=== PATIENT | male | born 1970 | race Caucasian/White ===

== ENCOUNTER 2018-10-14 08:23 | Observation (INO) | payer SELFPAY ==
[2018-10-14] MEDS ORDERED: METHYLPREDNISOLONE 125 MG INJ ONE (09:02)
[2018-10-14] MEDS ORDERED: LEVALBUTEROL 1.25 MG/3 ML NEB ONE (09:03)
[2018-10-14 09:18] LABS: Absolute Lymphocytes (CBC) 1.3 K/uL (0.7-4.9); Absolute Monocytes 0.8 K/uL (0.1-1.3); Absolute Neutrophil 2.9 K/uL (1.8-8.0); Eosinophils % 1.6 % (0-4.4); Hematocrit 47.7 % (39.6-49.0); Lymphocytes % 25.8 % (15.3-44.8); MPV 9.2 fL (7.6-11.3); Monocytes % 15.9 % (3.3-12.3); RBC Red Blood Cell Count 4.72 M/uL (4.33-5.43)
[2018-10-14 09:44] LABS: BUN Blood Urea Nitrogen 7 mg/dL (7-18); Bicarbonate 25 mmol/L (21-32); Glucose Level 123 mg/dL (74-106); NT PRO-BNP 31 pg/mL (<125); Potassium 4.1 mmol/L (3.5-5.1); Sodium Level 140 mmol/L (136-145); Troponin (Emerg Dept Use Only) < 0.02 ng/mL (0.0-0.045)
[2018-10-14 10:21] LABS: Blood Morphology Comment NOT SEEN (NOT SEEN); Platelet Estimate ADEQ
--- NOTE | 2018-10-14 10:21 | RAD REPORT ---
EXAM DESCRIPTION: RAD - Chest Single View - 10/14/2018 9:54 am CLINICAL HISTORY: Cough;Dyspnea;Chest pain Chest pain. COMPARISON: No comparisons FINDINGS: Portable technique limits examination quality. The lungs are grossly clear. The heart is normal in size. No displaced fractures. IMPRESSION: No acute intrathoracic process suspected.
--- NOTE | 2018-10-14 10:23 | EDPHYS ---
Physician Documentation [facility] Name: Faustino Reddy Jr Age: 48 yrs Sex: Male : 1970 Arrival Date: 10/14/2018 Time: 08:25 Bed 6 Private MD: ED Physician Harjeet Dyer HPI: 10/14 08:43 This 48 yrs old Male presents to ER via Ambulatory with complaints of Chest rn Tightness, Breathing Difficulty. 08:44 The patient has shortness of breath at rest, with light activity. Onset: The rn symptoms/episode began/occurred yesterday. Duration: The symptoms are intermittent. The patient's shortness of breath is aggravated by exertion, light activity. Associated signs and symptoms: Pertinent positives: chest pain, non-productive cough, Pertinent negatives: fever, hemoptysis, loss of consciousness, vomiting. Severity of symptoms: At their worst the symptoms were moderate in the emergency department the symptoms are unchanged. The patient has experienced similar episodes in the past. The patient has not recently seen a physician. Reports since yesterday difficult catching his breath, assoc with mild left sided chest pain that is also intermittent, smokes 2 packs a day for 30 years, doesn't see a doctor. No hemoptysis. Able to sleep flat. + dyspnea with exertion. Family memberinformed me outside of room that patient also having a lot of anxiety lately. . Historical: - Allergies: 08:32 No Known Allergies; aa5 - PMHx: 08:32 None; aa5 - PSHx: 08:32 None; aa5 - Immunization history:: Flu vaccine is not up to date. Adult Immunizations. - Social history:: Smoking status: Patient uses tobacco products, smokes two packs cigarettes per day. Smoking status: . - Ebola Screening: : No symptoms or risks identified at this time Patient denies travel to an Ebola-affected area in the 21 days before illness onset. - Family history:: not pertinent. - Hospitalizations: : No recent hospitalization is reported. ROS: 08:46 Constitutional: Negative for fever, chills, and weight loss, Eyes: Negative for injury, rn pain, redness, and discharge, Cardiovascular: Negative for palpitations, and edema, Respiratory: + for sob and cough Abdomen/GI: Negative for abdominal pain, nausea, vomiting, diarrhea, and constipation, MS/Extremity: Negative for injury and deformity, Skin: Negative for injury, rash, and discoloration, Neuro: Negative for headache, weakness, numbness, tingling, and seizure. Exam: 08:46 Constitutional: This is a well developed, well nourished patient who is awake, alert, rn mild tachypnea and appears anxious Head/Face: Normocephalic, atraumatic. Eyes: Pupils equal round and reactive to light, extra-ocular motions intact. Lids and lashes normal. Conjunctiva and sclera are non-icteric and not injected. Cornea within normal limits. Periorbital areas with no swelling, redness, or edema. ENT: MMM Cardiovascular: Regular rate and rhythm. No pulse deficits. Respiratory: + mild tachypnea with diminished breath sounds at bases. No retractions. Abdomen/GI: soft, non-tender MS/ Extremity: Pulses equal, no cyanosis. Neurovascular intact. Full, normal range of motion. Equal circumference. Neuro: Awake and alert, GCS 15, oriented to person, place, time, and situation. Cranial nerves II-XII grossly intact. Motor strength 5/5 in all extremities. Sensory grossly intact. 08:59 ECG was reviewed by the Attending Physician. rn Vital Signs: 08:33 BP 154 / 102; Pulse 80; Resp 20 S; Temp 98.0(O); Pulse Ox 100% on R/A; Weight 81.65 kg aa5 (R); Height 5 ft. 9 in. (175.26 cm) (R); Pain 0/10; 09:34 BP 158 / 93; Pulse 96; Resp 17; Pulse Ox 95% on R/A; tw2 10:30 BP 151 / 81; Pulse 90; Resp 17; Pulse Ox 96% on R/A; tw2 11:21 BP 150 / 85; Pulse 89; Resp 15; Pulse Ox 97% on R/A; tw2 08:33 Body Mass Index 26.58 (81.65 kg, 175.26 cm) aa5 MDM: 08:32 Patient medically screened. rn 10:20 Differential diagnosis: Anxiety Reaction Bronchitis Chronic Obstructive Pulmonary rn Disease Myocardial Infarction Pneumothorax pulmonary edema, Pulmonary Embolism reactive airway disease. Data reviewed: vital signs, nurses notes, lab test result(s), EKG, radiologic studies, plain films, and as a result, I will admit patient. Counseling: I had a detailed discussion with the patient and/or guardian regarding: the historical points, exam findings, and any diagnostic results supporting the discharge/admit diagnosis, lab results, radiology results, the need for further work-up and treatment in the hospital. Response to treatment: There is no appreciated change of the patient's symptoms at this time, and as a result, I will admit patient. Admission orders: after a detailed discussion of the patient's condition and case, the admit orders are written by me. ED course: Pt still tachypneic, no clear etiology for symptoms, has never had cardiac w/u and will admit for chest pain and pulmonary w/u. Risk factors with smoking hx. . 12:09 Test interpretation: by ED physician or midlevel provider: plain radiologic studies, rn CXR negative for acute infiltrate. 10/14 08:43 Order name: Blood Culture Adult (2) rn 10/14 08:43 Order name: BMP; Complete Time: 09:46 rn 10/14 08:43 Order name: CBC with Diff; Complete Time: 10:23 rn 10/14 08:43 Order name: D-Dimer; Complete Time: 09:46 rn 10/14 08:43 Order name: NT PRO-BNP; Complete Time: 09:46 rn 10/14 08:43 Order name: Troponin (emerg Dept Use Only); Complete Time: 09:46 rn 10/14 08:43 Order name: XRAY CXR (1 view); Complete Time: 10:23 rn 10/14 08:43 Order name: EKG; Complete Time: 08:44 rn 10/14 08:43 Order name: Cardiac monitoring; Complete Time: 08:45 rn 10/14 08:43 Order name: EKG - Nurse/Tech; Complete Time: 08:46 rn 10/14 08:43 Order name: Flu; Complete Time: 09:46 rn 10/14 09:21 Order name: Manual Differential; Complete Time: 10:23 EDMS 10/14 08:43 Order name: IV Saline Lock; Complete Time: 09: rn 10/14 08:43 Order name: Labs collected and sent; Complete Time: 09: rn 10/14 08:43 Order name: O2 Per Protocol; Complete Time: 08:45 rn 10/14 08:43 Order name: O2 Sat Monitoring; Complete Time: 08:45 rn EC:59 Rate is 80 beats/min. Rhythm is regular. QRS [place] is Normal. [place] interval is normal. QRS rn interval is normal. QT interval is normal. No Q waves. T waves are Normal. No ST changes noted. Clinical impression: Normal ECG. Interpreted by me. Reviewed by me. Administered Medications: 08:50 Drug: SOLU-Medrol 125 mg Route: IVP; Site: right antecubital; tw2 10:14 Follow up: Response: No adverse reaction tw2 08:50 Drug: Xopenex (3) 1.25 mg Route: Inhalation; tw2 10:11 Follow up: Response: No adverse reaction tw2 Disposition: 10/14/18 10:23 Hospitalization ordered by Roseann Zayas for Observation. Preliminary diagnosis are Chest pain, unspecified, Dyspnea, unspecified. - Bed requested for Telemetry/MedSurg (observation). - Status is Observation. tw2 - Condition is Stable. - Problem is new. - Symptoms are unchanged. UTI on Admission? No Signatures: Dispatcher [employer] EDMS Mikayla Nix Roman, MD MD rn Calderon, Audri, RN RN aa5 Renetta Burroughs, RN RN tw2 Corrections: (The following items were deleted from the chart) 08:48 08:46 Constitutional: This is a well developed, well nourished patient who is awake, rn alert, and in no acute distress. rn 12:14 10:23 Hospitalization Ordered by Roseann Zayas MD for Observation. Preliminary diagnosis bd is Chest pain, unspecified; Dyspnea, unspecified. Bed requested for Telemetry/MedSurg (observation). Status is Observation. Condition is Stable. Problem is new. Symptoms are unchanged. UTI on Admission? No. rn 13:30 12:14 10/14/2018 10:23 Hospitalization Ordered by Roseann Zayas MD for Observation. tw2 Preliminary diagnosis is Chest pain, unspecified; Dyspnea, unspecified. Bed requested for Telemetry/MedSurg (observation). Status is Observation. Condition is Stable. Problem is new. Symptoms are unchanged. UTI on Admission? No. bd
--- NOTE | 2018-10-14 10:23 | ER ---
Nurse's Notes [facility] Name: Faustino Reddy Jr Age: 48 yrs Sex: Male : 1970 Arrival Date: 10/14/2018 Time: 08:25 Bed 6 Private MD: Diagnosis: Chest pain, unspecified;Dyspnea, unspecified Presentation: 10/14 08:32 Presenting complaint: Patient states: intermittent dull chest pain and SOB that began aa5 yesterday. 08:32 Acuity: DIOR 3 aa5 08:32 Method Of Arrival: Ambulatory aa5 08:36 Transition of care: patient was not received from another setting of care. Onset of aa5 symptoms was September 2018. Risk Assessment: Do you want to hurt yourself or someone else? Patient reports no desire to harm self or others. Initial Sepsis Screen: Does the patient meet any 2 criteria? No. Patient's initial sepsis screen is negative. Does the patient have a suspected source of infection? No. Patient's initial sepsis screen is negative. Care prior to arrival: None. Historical: - Allergies: 08:32 No Known Allergies; aa5 - PMHx: 08:32 None; aa5 - PSHx: 08:32 None; aa5 - Immunization history:: Flu vaccine is not up to date. Adult Immunizations. - Social history:: Smoking status: Patient uses tobacco products, smokes two packs cigarettes per day. Smoking status: . - Ebola Screening: : No symptoms or risks identified at this time Patient denies travel to an Ebola-affected area in the 21 days before illness onset. - Family history:: not pertinent. - Hospitalizations: : No recent hospitalization is reported. Screenin:43 Abuse screen: Denies threats or abuse. Nutritional screening: No deficits noted. tw2 Tuberculosis screening: No symptoms or risk factors identified. Fall Risk None identified. Assessment: 08:50 General: Appears in no apparent distress. Behavior is calm, cooperative, appropriate tw2 for age. Pain: Complains of pain in chest Pain does not radiate. Pain began 2-3 days ago. Neuro: Level of Consciousness is awake, alert, obeys commands, Oriented to person, place, time, situation. Cardiovascular: Heart tones S1 S2 Patient's skin is warm and dry. Respiratory: Airway is patent Respiratory effort is even, unlabored, Respiratory pattern is regular, symmetrical, Breath sounds are clear bilaterally. GI: No signs and/or symptoms were reported involving the gastrointestinal system. Abdomen is flat, Bowel sounds present X 4 quads. : No signs and/or symptoms were reported regarding the genitourinary system. EENT: No signs and/or symptoms were reported regarding the EENT system. Derm: No signs and/or symptoms reported regarding the dermatologic system. Musculoskeletal: Range of motion: intact in all extremities. 09:34 Reassessment: Patient appears in no apparent distress at this time. No changes from tw2 previously documented assessment. Patient and/or family updated on plan of care and expected duration. Pain level reassessed. Patient is alert, oriented x 3, equal unlabored respirations, skin warm/dry/pink. 10:30 Reassessment: Patient appears in no apparent distress at this time. No changes from tw2 previously documented assessment. Patient and/or family updated on plan of care and expected duration. Pain level reassessed. Patient is alert, oriented x 3, equal unlabored respirations, skin warm/dry/pink. 11:22 Reassessment: Patient appears in no apparent distress at this time. No changes from tw2 previously documented assessment. Patient and/or family updated on plan of care and expected duration. Pain level reassessed. Patient is alert, oriented x 3, equal unlabored respirations, skin warm/dry/pink. Vital Signs: 08:33 BP 154 / 102; Pulse 80; Resp 20 S; Temp 98.0(O); Pulse Ox 100% on R/A; Weight 81.65 kg aa5 (R); Height 5 ft. 9 in. (175.26 cm) (R); Pain 0/10; 09:34 BP 158 / 93; Pulse 96; Resp 17; Pulse Ox 95% on R/A; tw2 10:30 BP 151 / 81; Pulse 90; Resp 17; Pulse Ox 96% on R/A; tw2 11:21 BP 150 / 85; Pulse 89; Resp 15; Pulse Ox 97% on R/A; tw2 08:33 Body Mass Index 26.58 (81.65 kg, 175.26 cm) aa5 ED Course: 08:25 Patient arrived in ED. rg4 08:32 Harjeet Dyer MD is Attending Physician. rn 08:32 Arm band placed on Patient placed in an exam room, on a stretcher. aa5 08:43 Renetta Burroughs, RN is Primary Nurse. tw2 08:43 Triage completed. aa5 08:44 Bed in low position. Call light in reach. street roller engineer on. Pulse ox on. NIBP on. tw2 08:45 Patient maintains SpO2 saturation greater than 95% on room air. tw2 08:50 Inserted saline lock: 20 gauge in right antecubital area, using aseptic technique. tw2 Blood collected. 09:06 EKG done, by civil cadd technician. reviewed by Harjeet Dyer MD. at1 09:06 Flu Sent. tw2 09:55 XRAY CXR (1 view) In Process Unspecified. EDMS 10:22 Roseann Zayas MD is Hospitalizing Provider. rn 12:41 No provider procedures requiring assistance completed. Patient admitted, IV remains in sg place. intact, No redness/swelling at site. Administered Medications: 08:50 Drug: SOLU-Medrol 125 mg Route: IVP; Site: right antecubital; tw2 10:14 Follow up: Response: No adverse reaction tw2 08:50 Drug: Xopenex (3) 1.25 mg Route: Inhalation; tw2 10:11 Follow up: Response: No adverse reaction tw2 Outcome: 10:23 Decision to Hospitalize by Provider. rn 12:40 Admitted to Tele accompanied by tech, via wheelchair, room 403, with chart, Report sg called to SUKHDEV Miguel 12:40 Condition: good 12:40 Instructed on discharge instructions, follow up and referral plans. safety practices, Demonstrated understanding of instructions, follow-up care. 13:30 Patient left the ED. tw2 Signatures: Dispatcher [employer] EDMS Alberto Yi, RN RN Harjeet Dyer MD MD rn Calderon, Audri RN RN aa5 Valentina Irizarry, evs attendant EKG Tat1 Renetta Burroughs, RN RN tw2 Annette Begum rg4 Corrections: (The following items were deleted from the chart) :43 08:36 Presenting complaint: Patient states: intermittent dull chest pain and SOB that aa5 began yesterday. aa5 08:43 08:36 Acuity: DIOR 3 aa5 aa5 08:43 08:36 Method Of Arrival: Ambulatory aa5 aa5
[2018-10-14] MEDS ORDERED: MORPHINE 2 MG/ML SYR IV PRN (12:48)
[2018-10-14] MEDS ORDERED: NITROGLYCERIN 0.4 MG/TAB SL PRN (12:48)
--- NOTE | 2018-10-14 13:25 | EKG ---
Test Date: 2018-10-14 Test Time: 08:47:13 District Representative: MIGUEL MEASUREMENT RESULTS: Intervals: Rate: 80 MA: 148 QRSD: 84 QT: 384 QTc: 442 [place]: P: 41 MA: 148 QRS: 73 T: 57 INTERPRETIVE STATEMENTS: Normal sinus rhythm Normal ECG No previous ECG available for comparison Electronically Signed On 10-14-18 13:24:51 CDT by Romulo Sewell
[2018-10-14 13:37] VITALS: BMI 26.4
[2018-10-14] MEDS: LEVALBUTEROL 1.25 MG/3 ML NEB NEB SCH ×2 (14:00→20:00)
[2018-10-14 15:25] LABS: Urine Appearance CLEAR; Urine Bilirubin NEGATIVE (NEG); Urine Blood NEGATIVE (NEG); Urine Color DK YELLOW; Urine Glucose NEGATIVE (NEG); Urine Protein NEGATIVE (NEG)
[2018-10-14 15:42] LABS: Urine Bacteria NONE SEEN /HPF (NONE SEEN); Urine RBC NONE SEEN /HPF (NONE SEEN)
[2018-10-14 15:43] LABS: Urine Culture Reflex Order NOT NEEDED
--- NOTE | 2018-10-14 16:20 | P.HP ---
Certification for Inpatient Patient admitted to: Observation With expected LOS: <2 Midnights Practitioner: I am a practitioner with admitting privileges, knowledge of patient current condition, hospital course, and medical plan of care. Services: Services provided to patient in accordance with Admission requirements found in Title 42 Section 412.3 of the Code of Federal Regulations Patient History Date of Service: 10/14/18 Reason for admission: Chest pain History of Present Illness: This is a 48-year-old male who is a current 2 [id number] smoker, daily marijuana usage along with daily alcohol usage admitted for chest pain. Per patient, he started having substernal chest pain for the past 1 day. Rates it at 5-6/10, radiating to the back, sharp type of pain that lasts for a few min then resolved spontaneously. No alleviating or exacerbating factors. Associated with shortness of breath. He denies any dizziness, nausea, vomiting , diaphoresis, headache, lightheadedness, syncopal or presyncopal episode. Patient states that he has had previous episodes like this where he could not catch his breath, mostly related to anxiety and driving down to [place] or other stressful situations. Since this has been progressively worsening, he told his this morning and she brought him to the emergency room. In the ER, his blood pressure was 154/102, heart rate was 80, respirations 20. He is afebrile at 98, 100% on room air. His labs were unremarkable. Troponin was negative x1. Chest x-ray was without any acute abnormalities. In the ER, he was given Xopenex breathing treatments along with Solu-Medrol 125 mg IV. At the time of my exam, he is alert oriented x3, his chest pain had resolved and he was in no acute distress. He was admitted for observation for chest pain rule out due to his risk factors of cigarette smoking and alcohol. Allergies No Known Allergies Allergy (Verified 10/14/18 12:48) Home medications list reviewed: Yes - Past Medical/Surgical History Has patient received pneumonia vaccine in the past: No Diabetic: No Past Medical History: Patient denies medical history -: tooth extraction - Family History Father History Unknown: Yes -: Lung disease, Cancer Notes: lung cancer Mother -: Heart disease, Diabetes - Social History Smoking Status: Heavy Tobacco smoker (>10 cigarettes/day) (2 pack per day x 30+ years) Counseled patient to stop smoking for: more than 10 minutes Smoking therapy provided: Yes Patient receptive to therapy: No Alcohol use: Yes CD- Drugs: Yes Caffeine use: No Place of Residence: Home Review of Systems 10-point ROS is otherwise unremarkable Physical Examination - Vital Signs Temperature: 98.6 F Blood Pressure: 147/83 Pulse: 77 Respirations: 17 Pulse Ox (%): 99 - Physical Exam General: Alert, In no apparent distress, Oriented x3 HEENT: Atraumatic, PERRLA, Mucous membr. moist/pink, EOMI, Sclerae nonicteric Neck: Supple, 2+ carotid pulse no bruit, No LAD, Without JVD or thyroid abnormality Respiratory: Clear to auscultation bilaterally, Normal air movement Cardiovascular: Regular rate/rhythm, Normal S1 S2 Gastrointestinal: Normal bowel sounds, No tenderness Musculoskeletal: No tenderness Integumentary: No rashes Neurological: Normal gait, Normal speech, Normal strength at 5/5 x4 extr, Normal tone, Normal affect Lymphatics: No axilla or inguinal lymphadenopathy - Studies Laboratory Data (last 24 hrs) 10/14/18 08:50: WBC 5.2, Hgb 16.5, Hct 47.7, Plt Count 138 L 10/14/18 08:50: Sodium 140, Potassium 4.1, BUN 7, Creatinine 0.77, Glucose 123 H Microbiology Data (last 24 hrs): 10/14/18 08:48 Nasopharnyx Influenza Type A Antigen Screen - Final 10/14/18 08:48 Nasopharnyx Influenza Type B Antigen Screen - Final Assessment and Plan - Problems (Diagnosis) (1) Chest pain, rule out acute myocardial infarction Current Visit: Yes Status: Acute Plan: Differential diagnoses include: ACS vs anxiety vs musculoskeletal. Chest pain guidelines: Metoprolol, aspirin, Plavix, statin. Morphine and nitro as needed for pain. Echo ordered, pending. Troponin negative x1. Trend troponins (2) Elevated blood-pressure reading without diagnosis of hypertension Current Visit: Yes Status: Acute Plan: Start patient on metoprolol. Patient denies any history of hypertension in the past, on no medications at home. He may need a prescription for blood pressure medication on discharge. (3) Alcohol abuse Current Visit: Yes Status: Chronic Plan: Patient counseled on alcohol cessation. (4) Macrocytosis without anemia Current Visit: Yes Status: Acute Plan: This is likely secondary to alcohol usage. No further intervention at this time. (5) Marijuana abuse Current Visit: Yes Status: Chronic (6) Nicotine abuse Current Visit: Yes Status: Chronic Plan: Counseled on smoking cessation. As patient stated that he has been thinking about it, he will start with cutting back on the amount of cigarettes he smokes. Nicotine patch offered, patient refused. (7) Anxiety Current Visit: Yes Status: Acute Plan: Patient will need outpatient follow up with the primary care physician for further management. He may benefit from SSRI versus CBT - Plan DVT prophylaxis: Aspirin and Plavix GI prophylaxis: None Diet: Heart healthy Disposition: Pending echo and troponins x2. Anticipate discharge in the next 24-48 hr. - Advance Directives Does patient have a Living Will: No Does patient have a Durable POA for Healthcare: No
[2018-10-14] MEDS: METHYLPREDNISOLONE 40 MG INJ IV SCH (16:31)
[2018-10-14] MEDS: METOPROLOL TAR 25 MG TAB PO SCH (16:33)
[2018-10-14 17:19] LABS: HDL Cholesterol 48 mg/dL (40-60); LDL Cholesterol, Calculated 88 (<130); Troponin I < 0.02 ng/mL (0.0-0.045)
[2018-10-14] MEDS ORDERED: ATORVASTATIN 40 MG TAB PO SCH (21:00)
[2018-10-14] MEDS ORDERED: TEMAZEPAM 15 MG CAP PO PRN (22:45)
[2018-10-15] MEDS: METHYLPREDNISOLONE 40 MG INJ IV SCH ×2 (00:01→08:09)
[2018-10-15] MEDS: LEVALBUTEROL 1.25 MG/3 ML NEB NEB SCH ×2 (01:12→09:50)
[2018-10-15 04:45] LABS: Absolute Lymphocytes (CBC) 0.8 K/uL (0.7-4.9); Absolute Monocytes 0.3 K/uL (0.1-1.3); Absolute Neutrophil 7.4 K/uL (1.8-8.0); Basophils % 0.1 % (0-1.3); Hematocrit 45.3 % (39.6-49.0); MPV 9.9 fL (7.6-11.3); Monocytes % 3.2 % (3.3-12.3); RBC Red Blood Cell Count 4.47 M/uL (4.33-5.43)
[2018-10-15 04:55] LABS: ALT/SGPT 88 U/L (12-78); AST/SGOT 83 U/L (15-37); Albumin 3.1 g/dL (3.4-5.0); Alkaline Phosphatase 95 U/L (45-117); BUN Blood Urea Nitrogen 12 mg/dL (7-18); Bicarbonate 24 mmol/L (21-32); Bilirubin Total 1.7 mg/dL (0.2-1.0); Glucose Level 133 mg/dL (74-106); Magnesium 2.1 mg/dL (1.8-2.4); Phosphorus 3.4 mg/dL (2.5-4.9); Potassium 3.7 mmol/L (3.5-5.1); Protein, Total 7.7 g/dL (6.4-8.2); Sodium Level 138 mmol/L (136-145)
[2018-10-15] MEDS ORDERED: POTASSIUM CL SA 10 MEQ TAB PO ONE (05:35)
[2018-10-15] MEDS: METOPROLOL TAR 25 MG TAB PO SCH (05:55)
[2018-10-15] MEDS ORDERED: CLOPIDOGREL 75 MG TABLET PO SCH (09:00)
[2018-10-15] MEDS ORDERED: ASPIRIN EC 81 MG TAB PO SCH (09:00)
[2018-10-15 09:24] VITALS: O2SAT 98
--- NOTE | 2018-10-15 11:25 | P.SSS ---
Patient History Date of Service: 10/15/18 Reason for admission: Chest pain History of Present Illness: This is a 48-year-old male who is a current 2 [id number] smoker, daily marijuana usage along with daily alcohol usage admitted for chest pain. Per patient, he started having substernal chest pain for the past 1 day. Rates it at 5-6/10, radiating to the back, sharp type of pain that lasts for a few min then resolved spontaneously. No alleviating or exacerbating factors. Associated with shortness of breath. He denies any dizziness, nausea, vomiting , diaphoresis, headache, lightheadedness, syncopal or presyncopal episode. Patient states that he has had previous episodes like this where he could not catch his breath, mostly related to anxiety and driving down to [place] or other stressful situations. Since this has been progressively worsening, he told his this morning and she brought him to the emergency room. In the ER, his blood pressure was 154/102, heart rate was 80, respirations 20. He is afebrile at 98, 100% on room air. His labs were unremarkable. Troponin was negative x1. Chest x-ray was without any acute abnormalities. In the ER, he was given Xopenex breathing treatments along with Solu-Medrol 125 mg IV. At the time of my exam, he is alert oriented x3, his chest pain had resolved and he was in no acute distress. He was admitted for observation for chest pain rule out due to his risk factors of cigarette smoking and alcohol. Allergies No Known Allergies Allergy (Verified 10/14/18 12:48) Home medications list reviewed: Yes Home Medications: Penicillin Vk [Veetids (Pen-Vee K)*] 500 mg PO Q8HR 10/14/18 Metoprolol Tartrate [Lopressor*] 12.5 mg PO BID 6AM 6PM #60 tab 10/15/18 - Past Medical/Surgical History Has patient received pneumonia vaccine in the past: No Diabetic: No -: tooth extraction - Family History Father History Unknown: Yes -: Lung disease, Cancer Notes: lung cancer Mother -: Heart disease, Diabetes - Social History Smoking Status: Heavy Tobacco smoker (>10 cigarettes/day) (2 pack per day x 30+ years) Alcohol use: Yes CD- Drugs: Yes Caffeine use: No Place of Residence: Home Review of Systems 10-point ROS is otherwise unremarkable Physical Examination - Vital Signs Temperature: 98.1 F Blood Pressure: 141/77 Pulse: 72 Respirations: 18 Pulse Ox (%): 98 - Physical Exam General: Alert, In no apparent distress, Oriented x3 HEENT: Atraumatic, PERRLA, Mucous membr. moist/pink, EOMI, Sclerae nonicteric Neck: Supple, 2+ carotid pulse no bruit, No LAD, Without JVD or thyroid abnormality Respiratory: Clear to auscultation bilaterally, Normal air movement Cardiovascular: Regular rate/rhythm, Normal S1 S2 Gastrointestinal: Normal bowel sounds, No tenderness Musculoskeletal: No tenderness Integumentary: No rashes Neurological: Normal gait, Normal speech, Normal strength at 5/5 x4 extr, Normal tone, Normal affect Lymphatics: No axilla or inguinal lymphadenopathy - Studies Microbiology Data (last 24 hrs): 10/14/18 08:48 Nasopharnyx Influenza Type A Antigen Screen - Final 10/14/18 08:48 Nasopharnyx Influenza Type B Antigen Screen - Final - Diagnosis (Problem(s)) (1) Chest pain, rule out acute myocardial infarction Status: Acute (2) Elevated blood-pressure reading without diagnosis of hypertension Status: Acute (3) Alcohol abuse Status: Chronic (4) Macrocytosis without anemia Status: Acute (5) Marijuana abuse Status: Chronic (6) Nicotine abuse Status: Chronic (7) Anxiety Status: Acute Treatment Summary: Patient was admitted for chest pain rule out. His symptoms resolved right after admission, in the ER. He remained hemodynamically stable throughout the stay. Troponins were negative x3. EKG without any abnormal changes. An echocardiogram was done, which was with EF of 84% and normal. Possibility of anxiety was discussed with patient. There is recommended that he follow up with his primary care physician for further evaluation and management. He may benefit from CBT prior to starting medications. If CBT is not adequate, he may benefit from addition of an SSRI. But he will need follow up with the primary care physician in order to manage this further. He was started on metoprolol, which helped his blood pressure. He will be discharged on metoprolol to help his blood pressure. He was recommended to follow up with his primary care physician for further management of elevated blood pressure. Prior to discharge, patient was alert oriented x3, in no acute distress and hemodynamically stable. His symptoms are completely resolved. He was extensively counseled on alcohol, smoking and marijuana usage cessation. His diagnoses and treatment plan was discussed with him. All questions were answered and patient verbalized understanding. He was discharged home a safe and stable manner. - Disposition Discharge Date: 10/15/18 Disposition: ROUTINE DISCHARGE Condition: GOOD Patient Discharge Instructions: Please follow up with your primary care physician in 2-3 days. Please discuss with your primary care physician regarding your blood pressure along with anxiety. Please return to the emergency room for worsening symptoms Diet: AHA Activity: Ad ariel Time Spent Managing Pts Care (In Minutes): 45
--- NOTE | 2018-10-15 13:38 | ECHO ---
HEIGHT: 5 ft 9 in WEIGHT: 179 lb 0 oz DATE OF STUDY: 10/15/[address]: Roseann Zayas MD 2-DIMENSIONAL: YES M.MODE: YES DOPPLER: YES COLOR FLOW: YES TDS: NO PORTABLE: NO DEFINITY: NO BUBBLE STUDY: NO DIAGNOSIS: CHEST PAIN CARDIAC HISTORY: CATHERIZATION: NO SURGERY: NO PROSTHETIC VALVE: NO PACEMAKER: NO MEASUREMENTS (cm) DIASTOLIC (NORMALS) SYSTOLIC (NORMALS) IVSd 0.8 (0.6-1.2) LA Diam 3.8 (1.9-4.0) LVEF 84% LVIDd 5.3 (3.5-5.7) LVIDs 2.5 (2.0-3.5) %FS 53% LVPWd 0.9 (0.6-1.2) Ao Diam 3.2 (2.0-3.7) 2 DIMENSIONAL ASSESSMENT: RIGHT ATRIUM: NORMAL LEFT ATRIUM: NORMAL RIGHT VENTRICLE: NORMAL LEFT VENTRICLE: NORMAL TRICUSPID VALVE: NORMAL MITRAL VALVE: NORMAL PULMONIC VALVE: NORMAL AORTIC VALVE: NORMAL PERICARDIAL EFFUSION: NONE AORTIC ROOT: NORMAL LEFT VENTRICULAR WALL MOTION: NORMAL DOPPLER/COLOR FLOW: NORMAL COMMENTS: NORMAL 2D ECHOCARDIOGRAM WITH DOPPLER. TECHNOLOGIST: Noel GOMEZ
[2018-10-15 14:19] VITALS: BP 141/77; TEMP 98.1
== END 2018-10-15 13:33 | disposition home or self-care (01) ==
LOC: ER 08:23 → ERHOLD 11:06 → 4TH 12:40
PROVIDERS: ADMIT Family Medicine; ATTEND Family Medicine
DX: R07.9 Chest pain, unspecified (principal); R03.0 Elevated blood-pressure reading, without diagnosis of hypertension; R06.00 Dyspnea, unspecified; D75.89 Other specified diseases of blood and blood-forming organs; F10.10 Alcohol abuse, uncomplicated; F12.10 Cannabis abuse, uncomplicated; F17.210 Nicotine dependence, cigarettes, uncomplicated; F41.9 Anxiety disorder, unspecified
CPT/HCPCS: 36415; 71045; 80048; 80053; 80061; 81001; 83735; 83880; 84100; 84484; 85025; 85379; 87040; 87086; 87088; 87804; 93005; 93306; 94640; 94760; 96374; 99285; G0378; J2920; J2930

== ENCOUNTER 2021-10-28 21:17 | Emergency (ER) | payer SELFPAY ==
--- OUTSIDE RECORDS SUMMARY | 2021-10-28 21:20 | XMS REPORT | Continuity of Care Document ---
:1970 Author Organization [facility] t Address [address] [place] [address] Care Team Providers Name Role Phone Rigo Dyer Attending Clinician Unavailable UNDEFINED Admitting Clinician Unavailable Payers Payer Name Policy Type Policy Number Effective Date Expiration Date S ource Problems This patient has no known problems. Allergies, Adverse Reactions, Alerts Allergy Allergy Status Severity Reaction(s) Onset Inactive Treating Comm ents Source Name Type Date Date Clinician No Known DA Active U [facility] Allergie 02-15 [facility] 00:00: d 00 [facility] No Known DA Active U [facility] Allergie 02-15 [facility] s 00:00: d 00 [facility] Medications This patient has no known medications. Procedures This patient has no known procedures. Encounters Start End Encounter Admission Attending Care Care Encounter Source Date/Time Date/Time Type Type Clinicians Facility Department ID 2021-02-15 Inpatient [facility] [id number] [facility] 14:23:00 [id number] [facility] 2021-02-15 2021-02-16 Emergency EM Dyer, [facility] [id number] [facility] 14:23:00 16:47:00 [facility] Results Test Description Test Time Test Comments Results Result Comments Source ALCOHOL 2021-02-16 10:46:00 Test Item Value Reference Range Interpretation Comme nts ALCOHOL (test code = ALC) 72 MG/DL 0-10 H [id number] 05:54:00 Test Item Value Reference Range Interpretation Comments ALCOHOL (test code = ALC) 140 MG/DL 0-10 HH [id number] 00:24:00 Test Item Value Reference Range Interpretation Comments ALCOHOL (test code = ALC) 229 MG/DL 0-10 HH COVID Asymptomatic IH [id number] 17:05:00 Test Item Value Reference Range Interpretation Comments COVID Asymptomatic IH NTX (test code = Negative COVNONPUINTX) COVID 19 Asymptomatic IH [id number] 17:05:00 Test Item Value Reference Range Interpretation Comments COVID 19 Asymptomatic NEGATIVE Negative Per ma nufacturer, IH AG (test code = negative results should COVNONPUIAG) be treated aspresumptive a nd, if inconsistent wi th clinical signs andsymptoms or necessary for p atient management, rashawn uld betested with a n alternative mol ecular assay. Negative resultsdo not p reclude SARS-CoV-2 infe ction and should not be usedas the sole basis for patient man agement decisions. Neg ative results should be considered in t he context of apat ient's recent exposure s, history, prese nce of clinicalsigns a nd symptoms consis tent with COVID-19. RBC [id number] 16:47:00 Test Item Value Reference Range Interpretation Comments PLATELET ESTIMATE (test MARKEDLY DECREASED ADEQUATE 72-90,000 code = PLTEST) THOUSAND PLATELET MORPHOLOGY NORMAL (test code = PLTMORPH) CBC W/AUTO [id number] 16:47:00 Test Item Value Reference Range Interpretation Comments WHITE BLOOD CELL (test code = 7.0 K/mm3 3.5-11.0 N WBC) RED BLOOD CELL (test code = 4.11 M/mm3 4.70-6.10 L RBC) HEMOGLOBIN (test code = HGB) 14.9 G/DL 12.3-15.9 N HEMATOCRIT (test code = HCT) 42.9 % 35.8-46.7 N MEAN CELL VOLUME (test code = 104.4 Fl 86.3-98.9 H MCV) MEAN CELL HGB (test code = MCH) 36.3 pg 28.9-34.4 H MEAN CELL HGB CONCETRATION 34.7 G/DL 32.1-34.5 H (test code = MCHC) RED CELL DISTRIBUTION WIDTH 13.6 SD 11.5-14.5 N (test code = RDW) PLATELET COUNT (test code = 80 K/mm3 150-450 L PLT) MEAN PLATELET VOLUME (test code 11.00 fL 7.0-9.6 H = MPV) NEUTROPHIL % (test code = NT%) 41.0 % 40-76 N IMMATURE GRANULOCYTE % (test 0.3 % 0.0-5.0 N code = IG%) LYMPHOCYTE % (test code = LY%) 34.7 % 20.5-51.1 N MONOCYTE % (test code = MO%) 18.8 % 1.7-9.3 H EOSINOPHIL % (test code = EO%) 3.8 % 0.0-6.0 N BASOPHIL % (test code = BA%) 1.4 % 0.0-2.0 N NUCLEATED RBC % (test code = 0.0 /100WBC% 0.0-1.0 N NRBC%) NEUTROPHIL # (test code = NT#) 2.9 K/mm3 1.8-7.6 N IMMATURE GRANULOCYTE # (test 0.02 x10 3/uL 0.00-0.03 N code = IG#) LYMPHOCYTE # (test code = LY#) 2.4 K/mm3 0.6-3.0 N MONOCYTE # (test code = MO#) 1.3 K/mm3 0.2-1.5 N EOSINOPHIL # (test code = EO#) 0.3 K/mm3 0.0-0.4 N BASOPHIL # (test code = BA#) 0.1 K/mm3 0.0-0.2 N NUCLEATED RBC # (test code = 0.0 K/mm3 0.00-0.01 N NRBC#) MANUAL DIFF REQUIRED (test code NO DIFF/SCN CRITERIA = MDIFF) [id number] 16:45:00 Test Item Value Reference Range Interpretation Comments ACETAMINOPHEN (test code = ACET) <2.0 mcG/ML 10.0-30.0 L Last Dose Date: 02/15/21Last Dose Time: [id number] 16:45:00 Test Item Value Reference Range Interpretation Comments ALCOHOL (test code = ALC) 343 MG/DL 0-10 HH Last Dose Date: 02/15/21Last Dose Time: 1434BASIC METABOLIC [id number] 16:45:00 Test Item Value Reference Range Interpretation Comments SODIUM (test code = NA) 141 mmol/L 134-147 N POTASSIUM (test code = 3.6 mmol/L 3.4-5.0 N K) CHLORIDE (test code = 107 mmol/L 100-108 N CL) CARBON DIOXIDE (test 27 mmol/L 21-32 N code = CO2) ANION GAP (test code = 7.0 GAP calc 4.0-15.0 N GAP) GLUCOSE (test code = 111 MG/DL 70-110 H GLU) BLOOD UREA NITROGEN 6 MG/DL 7-18 L (test code = BUN) GLOMERULAR FILTRATION >=60 max estimate >60 RATE (test code = GFR) estGFR CREATININE (test code = 0.5 MG/DL 0.8-1.3 L CREAT) CALCIUM (test code = CA) 8.8 MG/DL 8.5-10.1 N Last Dose Date: 02/15/21 Dose Time: 1433HEPATIC FUNCTION [id number] 16:45:00 Test Item Value Reference Range Interpretation Comments TOTAL PROTEIN (test code = PROT) 8.3 G/DL 6.4-8.2 H ALBUMIN (test code = ALB) 3.6 G/DL 3.4-5.0 N BILIRUBIN TOTAL (test code = BILT) 1.50 MG/DL 0.2-1.2 H BILIRUBIN DIRECT (test code = 1.10 MG/DL 0.00-0.30 H BILD) BILIRUBIN INDIRECT (test code = 0.40 MG/DL 0.2-1.2 N BILIND) SGOT/AST (test code = AST) 115 Unit/L 15-37 H SGPT/ALT (test code = ALT) 65 Unit/L 12-78 N ALKALINE PHOSPHATASE TOTAL (test 220 Unit/L 50-136 H code = ALKP) Last Dose Date: 02/15/21 Dose Time: [id number] 16:27:00 Test Item Value Reference Range Interpretation Comments SALICYLATE (test code < 1.7 MG/DL See_Comment L [Auto mated message] = DEANNA) The system Generate generated this result transmitted ref erence range: 2.8-20.0 THER. The reference r alexa was not used to interpret this result as normal/abnor mal. UA RFLX MICR CULT IF [id number] 16:10:00 Test Item Value Reference Range Interpretation Comments UA COLOR (test code = YELLOW discript YEL/STRAW COLU) UA APPEARANCE (test code CLEAR discript CLEAR = APPU) UA GLUCOSE DIPSTICK (test NEGATIVE mg/dL NEG code = DGLUU) UA BILIRUBIN DIPSTICK NEGATIVE mg/dL NEG (test code = BILU) UA KETONE DIPSTICK (test NEGATIVE mg/dL NEG code = KETU) UA SPECIFIC GRAVITY (test <=1.005 SG 1.005-1.030 code = SGU) UA BLOOD DIPSTICK (test TRACE mg/DL NEG code = MING) UA PH DIPSTICK (test code 6.0 pH UNITS 5.0-7.0 = JIGAR) UA PROTEIN DIPSTICK (test NEGATIVE mg/dL NEG code = PROU) UA UROBILINIOGEN DIPSTICK 0.2 mg/dL <2.0 (test code = URO) UA NITRITE DIPSTICK (test NEGATIVE SCREEN NEG code = KAROLINE) UA LEUKOCYTE ESTERASE NEGATIVE Leuk/mcL NEGATIVE DIPSTICK (test code = LEUU) UA CULTURE NEEDED? (test NO, WBC<10 Criteria Culture CHK code = UACULT) Indication for culture: RiskForSepsis-no oth srcDRUGS OF ABUSE SCREEN UR 2021-02-15 16:10:00 Test Item Value Reference Range Interpretation Comments URN COCAINE (test NEGATIVE See_Comment UNCONFIRME D code = COCAURN) SCcutoff SCREENING RE SULTS SHOULD NOT BE U SED FORNON-MEDICAL PURPOSES. [Automated message] The system which generated this result transmit gilberto reference range : <300 NG/ML. The reference range was not used to interpret this result as normal/abnormal . URN CANNABINOIDS POSITIVE See_Comment A UNCONFIRMED (test code = SCcutoff SCREENING RESUL TS CANNABURN) SHOULD NOT BE U SED FORNON-MEDICAL PURPOSES. [Automated message] The system which generated this result transmit gilberto reference range : <50 NG/ML. The reference range was not used to interpret this result as normal/abnormal . URN AMPHETAMINE (test NEGATIVE See_Comment UNCONF IRMED code = AMPHETURN) SCcutoff SCREENING RESULTS SHOULD NOT BE U SED FORNON-MEDICAL PURPOSES. [Automated message] The system which generated this result transmit gilberto reference range : <1000 NG/ML. Th e reference range was not used to interpret this result as normal/abnormal . URN BARBITURATE (test NEGATIVE See_Comment UNCONF IRMED code = BARBITURN) SCcutoff SCREENING RESULTS SHOULD NOT BE U SED FORNON-MEDICAL PURPOSES. [Automated message] The system which generated this result transmit gilberto reference range : <200 NG/ML. The reference range was not used to interpret this result as normal/abnormal . URN BENZODIAZEPINE NEGATIVE See_Comment UNCONFIRM ED (test code = SCcutoff SCREENING RESUL TS BENZOURN) SHOULD NOT BE U SED FORNON-MEDICAL PURPOSES. [Automated message] The system which generated this result transmit gilberto reference range : <200 NG/ML. The reference range was not used to interpret this result as normal/abnormal . URN OPIATES (test NEGATIVE See_Comment UNCONFIRME D code = OPIATURN) SCcutoff SCREENING R ESULTS SHOULD NOT BE U SED FORNON-MEDICAL PURPOSES. [Automated message] The system which generated this result transmit gilberto reference range : <2000 NG/ML. Th e reference range was not used to interpret this result as normal/abnormal . URN PHENCYCLIDINE NEGATIVE See_Comment UNCONFIRME D (PCP) (test code = SCcutoff SCREENING RESULTS PHENCURN) SHOULD NOT BE U SED FORNON-MEDICAL PURPOSES. [Automated message] The system which generated this result transmit gilberto reference range : <25 NG/ML. The reference range was not used to interpret this result as normal/abnormal . URN METHADONE (test NEGATIVE See_Comment UNCONFIR MED code = METHAURN) SCcutoff SCREENING R ESULTS SHOULD NOT BE U SED FORNON-MEDICAL PURPOSES. [Automated message] The system which generated this result transmit gilberto reference range : <300 NG/ML. The reference range was not used to interpret this result as normal/abnormal . Indication for culture: RiskForSepsis-no oth src
[2021-10-28] MEDS ORDERED: AMOX/K CLAV 875 MG TAB ONE (22:09)
[2021-10-28] MEDS ORDERED: TETANUS & DIPHTHERIA TOX,ADULT 0.5 ML VIAL ONE (22:13)
--- NOTE | 2021-10-28 22:20 | RAD REPORT ---
EXAM DESCRIPTION: RAD - Forearm Right - 10/28/2021 10:12 pm CLINICAL HISTORY: Right arm pain FINDINGS: No fracture is seen. A radiopaque foreign body not visualized
--- NOTE | 2021-10-28 22:25 | EDPHYS ---
Physician Documentation [facility] Name: Faustino Reddy Jr Age: 51 yrs Sex: Male : 1970 Arrival Date: 10/28/2021 Time: 21:22 Bed 13 Private MD: ED Physician Wil Hinds HPI: 10/28 21:52 This 51 yrs old Male presents to ER via Ambulatory with complaints of Dog Bite. ms3 21:52 The patient was bitten on the right arm, by a dog, Dog was eating. Onset: The ms3 symptoms/episode began/occurred acutely, 2 hour(s) ago. Animal information: The animal was reported to appear healthy. Animal's vaccinations are up to date. The animal is known and can be quarantined. Secondary to the bite the patient reports an abrasion, Associated signs and symptoms: The patient has no apparent associated signs or symptoms. Severity of symptoms: At their worst the symptoms were moderate, in the emergency department the symptoms are unchanged. Historical: - Allergies: 21:38 No Known Allergies; kd3 - Home Meds: 21:38 None [Active]; kd3 - PMHx: 21:38 None; kd3 - PSHx: 21:38 None; kd3 - Immunization history:: Adult Immunizations not up to date. - Social history:: Smoking status: Patient reports the use of cigarette tobacco products, smokes two packs cigarettes per day. ROS: 21:52 Constitutional: Negative for fever, and chills. ENT: Negative for injury, pain, and ms3 discharge, Neck: Negative for injury, pain, and swelling, Cardiovascular: Negative for chest pain, and palpitations. Respiratory: Negative for shortness of breath, cough, wheezing, and pleuritic chest pain, Abdomen/GI: Negative for abdominal pain, nausea, vomiting, diarrhea, and constipation, MS/Extremity: Negative for injury and deformity. 21:52 Skin: Positive for abrasion(s), puncture. 21:52 All other systems are negative. Exam: 21:52 Constitutional: This is a well developed, well nourished patient who is awake, alert, ms3 and in no acute distress. Head/Face: Normocephalic, atraumatic. Neck: Trachea midline, no cervical lymphadenopathy. Supple, full range of motion without nuchal rigidity, or vertebral point tenderness. No Meningismus. Chest/axilla: Normal chest wall appearance and motion. Nontender with no deformity. Cardiovascular: Regular rate and rhythm with a normal S1 and S2. No gallops, murmurs, or rubs. Normal PMI, no JVD. No pulse deficits. Respiratory: Lungs have equal breath sounds bilaterally, clear to auscultation and percussion. No rales, rhonchi or wheezes noted. No increased work of breathing, no retractions or nasal flaring. 21:52 Skin: injury, bite(s), superficial, of the right forearm. Vital Signs: 21:37 BP 137 / 90; Pulse 81; Resp 17; Pulse Ox 99% on R/A; Weight 86.18 kg; Height 5 ft. 9 kd3 in. (175.26 cm); Pain 7/10; 21:37 Body Mass Index 28.06 (86.18 kg, 175.26 cm) kd3 MDM: 21:51 Patient medically screened. ms3 21:52 Differential diagnosis: superficial laceration, Dog bite. ms3 22:28 Rabies Status: Rabies immunization is not indicated. Data reviewed: vital signs, nurses ms3 notes, EKG. 22:28 Test interpretation: by ED physician or midlevel provider: plain radiologic studies. ms3 Counseling: I had a detailed discussion with the patient and/or guardian regarding: the historical points, exam findings, and any diagnostic results supporting the discharge/admit diagnosis, radiology results, the need for outpatient follow up, to return to the emergency department if symptoms worsen or persist or if there are any questions or concerns that arise at home. ED course: Discussed x-ray, physical exam findings with patient. Patient to follow-up with primary care physician in 2 to 3 days. Patient understands and agrees with plan. All questions were answered. Return precautions discussed include worsening symptoms, or any other concerns. On reevaluation patient is alert and oriented x4, in no apparent distress, nontoxic-appearing, speaking full sentences, ambulatory in emergency department, no signs of compartment syndrome present. 10/28 21:52 Order name: Forearm Right XRAY; Complete Time: 22:21 ms3 Administered Medications: 22:12 Drug: ADAcel 0.5 ml {Lift Supervisor: [employer]. Exp: 08/05/2023. Lot #: [id number]. } sm5 Route: IM; Site: left deltoid; 22:53 Follow up: Response: No adverse reaction 5 22:13 Drug: Augmentin (Amoxicillin-Clavulanate) 875 mg Route: PO; sm5 22:53 Follow up: Response: No adverse reaction 5 22:28 Drug: HYDROcodone-acetaminophen 5 mg-325 mg 1 tabs Route: PO; sm5 22:53 Follow up: Response: No adverse reaction 5 Disposition Summary: 10/28/21 22:24 Discharge Ordered Location: Home ms3 Condition: Stable ms3 Diagnosis - Bitten by dog ms3 - Abrasion of right forearm ms3 Followup: ms3 - With: Hadley Shepard, - When: 2 - 3 days - Reason: Re-evaluation by your physician Discharge Instructions: - Discharge Summary Sheet ms3 - Animal Bite, Adult ms3 Forms: - Medication Reconciliation Form ms3 - Thank You Letter ms3 - Antibiotic Education ms3 - Prescription Opioid Use ms3 Prescriptions: - Augmentin 875-125 mg Oral Tablet - take 1 tablet by ORAL route every 12 hours for 10 days; 20 tablet; Refills: 0, ms3 Product Selection Permitted Signatures: Dispatcher [employer] EDMS Wil Hinds DO DO ms3 Sherin Osorio RN RN 3 Ramila Suggs RN RN sm5 Corrections: (The following items were deleted from the chart) 10/29 06:00 06 22:28 Counseling: I had a detailed discussion with the patient and/or guardian ms3 regarding: the historical points, exam findings, and any diagnostic results supporting the discharge/admit diagnosis, radiology results, the need for outpatient follow up, to return to the emergency department if symptoms worsen or persist or if there are any questions or concerns that arise at home, ms3 10/29 06:00 0604 22:28 ED course: Discussed chest x-ray, physical exam findings with patient. ms3 Patient to follow-up with primary care physician in 2 to 3 days. Patient understands and agrees with plan. All questions were answered. Return precautions discussed include worsening symptoms, or any other concerns. On reevaluation patient is alert and oriented x4, in no apparent distress, nontoxic-appearing, speaking full sentences, ambulatory in emergency department, no signs of compartment syndrome present. ms3
--- NOTE | 2021-10-28 22:25 | ER ---
Nurse's Notes [facility] Name: Faustino Reddy Jr Age: 51 yrs Sex: Male : 1970 Arrival Date: 10/28/2021 Time: 21:22 Bed 13 Private MD: Diagnosis: Bitten by dog;Abrasion of right forearm Presentation: 10/28 21:37 Chief complaint: Patient states: i got bit by a dog about an hour ago. my made me kd3 come in. Coronavirus screen: Vaccine status: Patient reports being unvaccinated. Ebola Screen: No symptoms or risks identified at this time. Initial Sepsis Screen: Does the patient meet any 2 criteria? No. Patient's initial sepsis screen is negative. Does the patient have a suspected source of infection? No. Patient's initial sepsis screen is negative. Risk Assessment: Do you want to hurt yourself or someone else? Patient reports no desire to harm self or others. Onset of symptoms was October 28, 2021. 21:37 Method Of Arrival: Ambulatory kd3 21:37 Acuity: DIOR 3 kd3 Triage Assessment: 21:38 Bite description: bite sustained to dorsal aspect of right forearm and palmar aspect of kd3 right forearm by a dog, animal information: vaccination(s) is not applicable. General: Appears in no apparent distress. Behavior is calm, cooperative. Pain: Complains of pain in dorsal aspect of right forearm and palmar aspect of right forearm. Historical: - Allergies: 21:38 No Known Allergies; kd3 - Home Meds: 21:38 None [Active]; kd3 - PMHx: 21:38 None; kd3 - PSHx: 21:38 None; kd3 - Immunization history:: Adult Immunizations not up to date. - Social history:: Smoking status: Patient reports the use of cigarette tobacco products, smokes two packs cigarettes per day. Screenin:39 Abuse screen: Denies threats or abuse. Denies injuries from another. Nutritional kd3 screening: No deficits noted. Tuberculosis screening: No symptoms or risk factors identified. Fall Risk None identified. Assessment: 22:00 General: Appears in no apparent distress. Behavior is appropriate for age. Pain: sm5 Complains of pain in right arm. Neuro: No deficits noted. Level of Consciousness is awake, alert, obeys commands, Oriented to person, place, time, situation. Cardiovascular: No deficits noted. Capillary refill < 3 seconds Patient's skin is warm and dry. Respiratory: No deficits noted. Airway is patent Trachea midline Respiratory effort is even, unlabored. Derm: Skin laceration to R forearm Skin is pink, warm \T\ dry. Wound noted right arm. Vital Signs: 21:37 BP 137 / 90; Pulse 81; Resp 17; Pulse Ox 99% on R/A; Weight 86.18 kg; Height 5 ft. 9 kd3 in. (175.26 cm); Pain 7/10; 21:37 Body Mass Index 28.06 (86.18 kg, 175.26 cm) kd3 ED Course: 21:22 Patient arrived in ED. ja2 21:33 Ramila Suggs, SUKHDEV is Primary Nurse. sm5 21:38 Triage completed. kd3 21:38 Arm band placed on left wrist. kd3 21:39 Wil Hinds DO is Attending Physician. ms3 21:39 Patient has correct armband on for positive identification. kd3 21:39 No provider procedures requiring assistance completed. kd3 22:14 Forearm Right XRAY In Process Unspecified. EDMS 22:22 Hadley Shepard DO is Referral Physician. ms3 22:32 Patient did not have IV access during this emergency room visit. Wound care: to sm5 laceration located on right arm was cleaned with soap and water, Patient tolerated well. Administered Medications: 22:12 Drug: ADAcel 0.5 ml {Environmental Web Crawler: Apprion. Exp: 08/05/2023. Lot #: [id number]. } sm5 Route: IM; Site: left deltoid; 22:53 Follow up: Response: No adverse reaction sm5 22:13 Drug: Augmentin (Amoxicillin-Clavulanate) 875 mg Route: PO; sm5 22:53 Follow up: Response: No adverse reaction sm5 22:28 Drug: HYDROcodone-acetaminophen 5 mg-325 mg 1 tabs Route: PO; sm5 22:53 Follow up: Response: No adverse reaction sm5 Medication: 22:52 Vaccine Information Statement (VIS) provided today. Questions and/or concerns 5 addressed. VIS edition date: December 30, 2020. Outcome: 22:24 Discharge ordered by . ms3 22:51 Discharged to home ambulatory. sm5 22:51 Condition: stable 22:51 Discharge instructions given to patient, Instructed on discharge instructions, follow up and referral plans. no drinking with medication, medication usage, Demonstrated understanding of instructions, follow-up care, medications, Prescriptions given X 1. 22:53 Patient left the ED. sm5 Signatures: Dispatcher [employer] EDMS Wil Hinds DO DO ms3 Natalia Cody2 Sherin Osorio RN RN kd3 Ramila Suggs RN RN sm5
[2021-10-28] MEDS ORDERED: HYDROCODONE/APAP 5/325 MG TAB ONE (22:28)
[2021-10-28 23:14] VITALS: BP 137/90; O2SAT 99
== END 2021-10-28 22:53 | disposition home or self-care (01) ==
LOC: ER 21:17
DX: S50.811A Abrasion of right forearm, initial encounter (principal); W54.0XXA Bitten by dog, initial encounter; F17.210 Nicotine dependence, cigarettes, uncomplicated
CPT/HCPCS: 90471; 90714; 99283